=== PATIENT | male | born 1970 | race Caucasian/White ===

== ENCOUNTER 2017-04-15 03:39 | Inpatient (IN) | payer OTHER ==
[~2017-04-15] VITALS: Ht 180.3 cm; Wt 49.9 kg
[2017-04-15] MEDS ORDERED: ABILIFY5 MG PO (05:43)
[2017-04-15] MEDS ORDERED: WELLBUTRIN SR150 MG PO (05:44)
[2017-04-15] MEDS ORDERED: VITAMIN B COMP1 EACH PO (05:44)
[2017-04-15] MEDS ORDERED: COENZYME Q10100 MG PO (05:46)
[2017-04-15] MEDS ORDERED: CAT'S CLAW500 MG PO (05:46)
[2017-04-15] MEDS ORDERED: LEXAPRO20 MG PO (05:47)
[2017-04-15] MEDS ORDERED: COLACE100 MG PO (05:47)
[2017-04-15] MEDS ORDERED: DURAGESIC 50 MCG1 EA TD (05:48)
[2017-04-15] MEDS ORDERED: CHRONULAC20 GM/30 M PO (05:50)
[2017-04-15] MEDS ORDERED: ATIVAN0.5 MG PO (05:52)
[2017-04-15] MEDS ORDERED: MEGACE SUSP40 MG/ML PO (05:53)
[2017-04-15] MEDS ORDERED: CENTRUM ULTRA1 EACH PO (05:53)
[2017-04-15] MEDS ORDERED: DITROPAN XL10 MG PO (05:54)
[2017-04-15] MEDS ORDERED: ROXICODONE TAB 55 MG PO (05:56)
[2017-04-15] MEDS ORDERED: OXYCODON-ACETA1 EAC1 PO (05:58)
[2017-04-15] MEDS ORDERED: PYRIDIUM100 MG PO (05:58)
[2017-04-15] MEDS ORDERED: COUMADIN 2.5MG2.5 MG PO (05:59)
[2017-04-15] MEDS ORDERED: VITAMIN C 500500 MG PO (05:59)
[2017-04-15 06:02] LABS: HEMOGLOBIN 12.4 gm/dl (14.0-17.5); RED BLOOD COUNT 3.9 M/UL (4.20-5.50); WHITE BLOOD COUNT 18.1 K/UL (4.5-11.0)
[2017-04-15 06:25] LABS: BUN/CREATININE RATIO 25 (0-10)
[2017-04-16 03:57] LABS: BUN/CREATININE RATIO 24 (0-10)
[2017-04-16] MEDS ORDERED: ZOSYN 3.373.375 GM/5 IV (12:05)
[2017-04-16] MEDS ORDERED: COMBIVENT0.074 GM/I NEB (12:11)
== END 2017-04-16 13:15 | DRG 299 ==
LOC: CCU 04:42
PROVIDERS: Hospitalist; ADMIT Internal Medicine
DX: I82.4Z2 Acute embolism and thrombosis of unspecified deep veins of left distal lower extremity (principal); I26.99 Other pulmonary embolism without acute cor pulmonale; C34.90 Malignant neoplasm of unspecified part of unspecified bronchus or lung; C79.89 Secondary malignant neoplasm of other specified sites; N39.0 Urinary tract infection, site not specified; N17.9 Acute kidney failure, unspecified; R53.81 Other malaise; E86.0 Dehydration; F17.210 Nicotine dependence, cigarettes, uncomplicated; F10.21 Alcohol dependence, in remission; Z92.21 Personal history of antineoplastic chemotherapy; G89.3 Neoplasm related pain (acute) (chronic); Z88.1 Allergy status to other antibiotic agents; Z88.2 Allergy status to sulfonamides; Z79.899 Other long term (current) drug therapy; R79.1 Abnormal coagulation profile; F41.9 Anxiety disorder, unspecified; F32.9 Major depressive disorder, single episode, unspecified; Z96.0 Presence of urogenital implants; Z98.890 Other specified postprocedural states
CPT/HCPCS: 36415; 80048; 81001; 83605; 85025; 85610; 85730; 87040; C9113; J2270; J2543; J3370; J7030; J7050; J7070